=== PATIENT | male | born 1995 | race Caucasian/White ===

== ENCOUNTER 2016-06-29 03:25 | Emergency (ER) | payer OTHER ==
[~2016-06-29] VITALS: Ht 180.3 cm; Wt 115.9 kg
[2016-06-29 03:28] VITALS: TEMP 37; Ht 180.3 cm; Wt 115.9 kg
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
[2016-06-29 04:41] VITALS: BP 144/86; PULSE 101; O2SAT 95
--- NOTE | 2016-06-29 08:07 | DIAGNOSTIC IMAGING REPORT ---
CT OF THE CERVICAL SPINE CLINICAL HISTORY: Pt c/o blacking out COMPARISON STUDY: No previous studies for comparison. CT DOSE: TECHNIQUE: CT scan of the cervical spine was performed from the skull base to the thoracic inlet. Images are reviewed in the axial, sagittal, and coronal planes. IV contrast was not administered for this examination. FINDINGS: There is a small left mastoid effusion The visualized portions of the lung apices reveal no evidence of pneumothorax. The prevertebral soft tissues are normal. No fractures or subluxations are visualized. IMPRESSION: No evidence of acute fracture or traumatic subluxation. Electronically signed by: Juan Antonio Dixon M.D. 06/29/2016 8:05 AM Dictated Date/Time: 06/29/2016 8:03 AM
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
== END 2016-06-29 05:22 | disposition home or self-care (01) ==
LOC: C.EDB 03:27
DX: S09.90XA Unspecified injury of head, initial encounter (principal); Z82.49 Family history of ischemic heart disease and other diseases of the circulatory system; Y04.8XXA Assault by other bodily force, initial encounter; Y93.89 Activity, other specified; Y92.414 Local residential or business street as the place of occurrence of the external cause; Y99.8 Other external cause status